=== PATIENT | female | born 1970 | race Caucasian/White ===

== ENCOUNTER 2020-11-18 18:18 | Emergency (ER) | payer MEDICAID ==
--- NOTE | 2020-11-18 19:37 | EDM.PDOC ---
ED HPI GENERAL MEDICAL PROBLEM - General Chief Complaint: General Stated Complaint: COUGH, DIARRHEA Time Seen by Provider: 11/18/20 19:15 Source of Information: Reports: Patient History Limitations: Reports: No Limitations - History of Present Illness INITIAL COMMENTS - FREE TEXT/NARRATIVE: 50-year-old lady came to the emergency department for evaluation of a 5-day history of fever, chills, cough, rhinorrhea, abdominal pain, diarrhea. She is taking Tylenol over this time. She has also tried taking Pepto-Bismol over the last 2 days with some relief of her diarrhea. She tried drinking some saniya pedro today which she states did calm down her stomach pain and diarrhea. She has been drinking extra fluids. Is concerned that she may have Covid 19. She is not vaccinated, she has never been positive for COVID-19, and she has no known Covid positive contacts are last 2 weeks. 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: Social & Family History - Tobacco Use Tobacco Use Status *Q: Current Every Day Tobacco User Years of Tobacco use: 40 Packs/Tins Daily: 1 - Caffeine Use Caffeine Use: Reports: Coffee - Recreational Drug Use Recreational Drug Use: No ED ROS GENERAL - Review of Systems Review Of Systems: See Below Constitutional: Reports: No Symptoms HEENT: Reports: Ear Pain, Rhinitis, Sinus Problem Respiratory: Reports: Cough, Sputum Cardiovascular: Reports: No Symptoms Endocrine: Reports: No Symptoms GI/Abdominal: Reports: Abdominal Pain, Diarrhea, Nausea Musculoskeletal: Reports: No Symptoms Skin: Reports: No Symptoms Neurological: Reports: No Symptoms Psychiatric: Reports: No Symptoms Hematologic/Lymphatic: Reports: No Symptoms Immunologic: Reports: No Symptoms ED EXAM, GENERAL - Physical Exam Exam: See Below Exam Limited By: No Limitations General Appearance: Alert, WD/WN, No Apparent Distress, Anxious Eye Exam: Bilateral Eye: EOMI Nose: Other (Bilateral nasal mucosa shows erythema, edema, no exudate, right much greater than left) Throat/Mouth: Inflammation, Other (No exudate) Head: Atraumatic, Normocephalic Neck: Normal Inspection. No: Lymphadenopathy (R), Lymphadenopathy (L) Respiratory/Chest: No Respiratory Distress, Lungs Clear, Normal Breath Sounds Cardiovascular: Normal Peripheral Pulses, Regular Rate, Rhythm Peripheral Pulses: 2+: Radial (L), Radial (R), Dorsalis Pedis (L), Dorsalis Pedis (R) GI/Abdominal: Normal Bowel Sounds, Non-Tender Back Exam: Normal Inspection. No: CVA Tenderness (R), CVA Tenderness (L) Extremities: Pedal Edema, Other (Trace bilateral lower extremity edema) Neurological: Alert, Oriented, CN II-XII Intact, Normal Cognition Psychiatric: Anxious Skin Exam: Warm, Dry, Intact Course - Vital Signs Text/Narrative:: COVID-19 test negative. Patient has no exudate in the nasal mucosa, oropharynx, or bilateral middle ears. Last Recorded V/S: Last Vital Signs Temp 35.6 C L 11/18/20 18:25 Pulse 90 11/18/20 18:25 Resp 20 11/18/20 18:25 BP 135/87 11/18/20 18:25 Pulse Ox 98 11/18/20 18:25 - Orders/Labs/Meds Orders: Active Orders 24 hr Category Date Time Status CORONAVIRUS COVID-19 BAKARI [MOLEC] Stat Lab 11/18/20 18:40 Received Departure - Departure Time of Disposition: 19:42 Disposition: Home, Self-Care 01 Condition: Good Clinical Impression: Upper respiratory infection, viral - Discharge Information *PRESCRIPTION DRUG MONITORING PROGRAM REVIEWED*: Not Applicable *COPY OF PRESCRIPTION DRUG MONITORING REPORT IN PATIENT DAVID: Not Applicable Instructions: Viral Respiratory Infection, [id number] Additional Instructions: Patient instructed to continue to use Tylenol, Pepto-Bismol, Imodium, nasal steroids [id number] for symptom relief. Patient instructed on how to use nasal steroids properly. Patient instructed to stop smoking and to avoid all particulates especially until her nasal symptoms resolved. Sepsis Event Note (ED) - Evaluation Sepsis Screening Result: No Definite Risk - Focused Exam Vital Signs: Vital Signs Temp Pulse Resp BP Pulse Ox 11/18/20 18:25 35.6 C L 90 20 135/87 98
== END 2020-11-18 19:51 | disposition home or self-care (01) ==
LOC: FB.ED 18:18
DX: J06.9 Acute upper respiratory infection, unspecified (principal); Z88.0 Allergy status to penicillin; Z72.0 Tobacco use; Z20.822 Contact with and (suspected) exposure to COVID-19
CPT/HCPCS: 99284; U0002

== ENCOUNTER 2021-02-07 12:02 | Emergency (ER) | payer MEDICAID ==
--- NOTE | 2021-02-07 13:27 | EDM.PDOC ---
ED HPI GENERAL MEDICAL PROBLEM - General Stated Complaint: LACERATION R KNEE Time Seen by Provider: 02/07/21 12:05 Source of Information: Reports: Patient History Limitations: Reports: No Limitations - History of Present Illness INITIAL COMMENTS - FREE TEXT/NARRATIVE: c/o knee lac at home, had water on floor, going for a mop when L foot slipped backward and she feel forward landing squarely on her R knee last Td was 2-3y ago raised [place], lives in [facility] with her 13 yo dtr and her mother (who is in upstairs apartment) works at [employer] in [facility] smokes cigs not ill, denies other CV and pul problems - Related Data Allergies Allergy/AdvReac Type Severity Reaction Status Date / Time Penicillins Allergy Rash Verified 11/18/20 18:23 Home Meds: Home Meds Clindamycin HCl 300 mg PO TID #15 capsule 02/07/21 [Rx] 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: Social & Family History - Caffeine Use Caffeine Use: Reports: Coffee ED ROS GENERAL - Review of Systems Review Of Systems: See Below Constitutional: Reports: No Symptoms HEENT: Reports: No Symptoms Respiratory: Reports: No Symptoms Cardiovascular: Reports: No Symptoms Endocrine: Reports: No Symptoms GI/Abdominal: Reports: No Symptoms : Reports: No Symptoms Musculoskeletal: Reports: No Symptoms Skin: Reports: Wound Neurological: Reports: No Symptoms Psychiatric: Reports: No Symptoms Hematologic/Lymphatic: Reports: No Symptoms Immunologic: Reports: No Symptoms ED EXAM, SKIN/RASH Exam: See Below Exam Limited By: No Limitations General Appearance: Alert, WD/WN, No Apparent Distress Ears: Normal External Exam Nose: Normal Inspection Throat/Mouth: Normal Inspection, Normal Lips, Normal Teeth, Normal Voice, No Airway Compromise Head: Atraumatic, Normocephalic Neck: Normal Inspection, Supple, Non-Tender Respiratory/Chest: No Respiratory Distress, Lungs Clear Cardiovascular: Regular Rate, Rhythm, No Edema Back Exam: Normal Inspection Extremities: Normal Inspection, Normal Range of Motion, Non-Tender Neurological: Alert, Oriented, CN II-XII Intact, Normal Cognition, No Motor/Sensory Deficits Skin: Other (13.5 cm horizontal lac over mid portion of R knee, patella visible and intact, no fb's, no tendon injury, 1% lido with #30 needle local with good analgesia, 3-0 Prolene horizontal mattress x 9 with pucker of edges) Lymphatic: No Adenopathy Course - Re-Assessments/Exams Free Text/Narrative Re-Assessment/Exam: 02/07/21 15:19 inspection of wound showed no complications, exposed patella without injury pt insisted on crutches and a knee immobilizer, then decided she did not want one dressing, 6" Robby x 2 and crutches she agreed to see PCP in 2d allergy to PCN, will use clinda 300 tid x 5d altho risk of infection is quite low pt off work in 2d, will have her return to work in 3d with work restrictions as per PCP would expect sutures would need to be removed in 10-14 days, preferably 14 days Departure - Departure Time of Disposition: 13:22 Disposition: Home, Self-Care 01 Condition: Good Clinical Impression: Laceration of right knee - Discharge Information *PRESCRIPTION DRUG MONITORING PROGRAM REVIEWED*: Not Applicable *COPY OF PRESCRIPTION DRUG MONITORING REPORT IN PATIENT DAVID: Not Applicable Prescriptions: Clindamycin HCl 300 mg PO TID #15 capsule Instructions: Laceration Care, Adult Forms: ED Return to Work/School Form Additional Instructions: Keep clean and dry and covered with a dressing and Robby wrap. See Ryanne in 2 days for further evaluation. May stand. Limit walking. My work on 02/10.
== END 2021-02-07 13:33 | disposition home or self-care (01) ==
LOC: FB.ED 12:02
DX: S81.011A Laceration without foreign body, right knee, initial encounter (principal); Z88.0 Allergy status to penicillin; W01.0XXA Fall on same level from slipping, tripping and stumbling without subsequent striking against object, initial encounter; Y92.009 Unspecified place in unspecified non-institutional (private) residence as the place of occurrence of the external cause
CPT/HCPCS: 12005; 99283-25